=== PATIENT | female | born 1985 | race Caucasian/White ===

== ENCOUNTER 2017-02-02 17:59 | Emergency (ER) | payer OTHER ==
[2017-02-02 21:22] VITALS: BP 115/77
== END 2017-02-02 21:22 | disposition home or self-care (01) ==
LOC: ED 17:59
DX: L25.9 Unspecified contact dermatitis, unspecified cause (principal)

== ENCOUNTER 2017-11-22 13:22 | Emergency (ER) | payer OTHER ==
[~2017-11-22] VITALS: Ht 154.9 cm; Wt 96.2 kg
[2017-11-22 13:27] VITALS: BP 134/86; Ht 154.9 cm; Wt 96.2 kg
== END 2017-11-22 15:13 | disposition home or self-care (01) ==
LOC: ED 13:22
DX: R21 Rash and other nonspecific skin eruption (principal)

== ENCOUNTER 2018-06-30 02:48 | Emergency (ER) | payer OTHER ==
[~2018-06-30] VITALS: Ht 154.9 cm; Wt 100.7 kg
[2018-06-30 02:50] VITALS: Ht 154.9 cm; Wt 100.7 kg
[2018-06-30 03:28] VITALS: BP 110/39
== END 2018-06-30 03:28 | disposition home or self-care (01) ==
LOC: ED 02:48
DX: J20.9 Acute bronchitis, unspecified (principal); J02.9 Acute pharyngitis, unspecified

== ENCOUNTER 2019-07-16 12:58 | Emergency (ER) | payer OTHER ==
[~2019-07-16] VITALS: Ht 154.9 cm; Wt 98.9 kg
[2019-07-16 13:12] VITALS: BP 124/71; Ht 154.9 cm; Wt 98.9 kg
[2019-07-16 14:23] LABS: microscopic required? YES; urine erythrocyte 2+ (NEGATIVE)
== END 2019-07-16 14:11 | disposition home or self-care (01) ==
LOC: ED 12:58
PROVIDERS: Emergency Medicine
DX: N39.0 Urinary tract infection, site not specified (principal)